=== PATIENT | female | born 1950 | race Caucasian/White ===

== ENCOUNTER → 2017-03-04 | Outpatient (CLI) | payer MEDICARE, OTHER ==
[~2017-03-04] MED LIST: ACETAMINOPHEN-1 EAC1 PO; ACETAMINOPHEN325 M1 PO; ACID CONTROL20 MG PO; CALCIUM 500 +1 EAC5 PO; COLACE100 MG PO; COUMADIN7.5 MG PO; DOXYCYCLINE 10100 MG PO; ESTRADIOL 1 MG T1 M1 PO; FERRO-TIME325 MG PO; FLEXERIL PO; FOLIC ACID1 MG PO; HUMIRA20 MG/0.4 SQ; L-LYSINE500 M1 PO; LEVAQUIN 500 M500 M2 PO; LIDODERM TP; MACROBID 100 M100 M1 PO; METHOTREXATE 22.5 MG PO; MOBIC15 MG PO; NEXIUM40 MG PO; PERCOCET 5-3251 EACH PO; PREDNISONE 10 M10 MG PO; PREDNISONE PO; PROAIR HFA8.5 GM INH; PROTONIX40 M1 PO
[2017-03-04 13:20] LABS: HEMATOCRIT 39.7 % (37.0-47.0); HEMOGLOBIN 12.9 gm/dL (12.0-15.0); MCHC 32.5 g/dL (28.0-37.0); MCV 98.4 fL (80.0-100.0); MPV 7.4 fl. (7.2-11.1); RBC 4.04 mil/uL (4.20-5.00); RDW-CV 15.6 % (10.5-14.5); WBC 8.2 thou/uL (4.0-11.0)
[2017-03-04 13:34] LABS: CREATININE 1.1 mg/dL (0.6-1.3)
== END ==
LOC: M.LAB 12:55
DX: M05.9 Rheumatoid arthritis with rheumatoid factor, unspecified (principal)

== ENCOUNTER 2017-04-10 13:16 | Emergency (ER) | payer MEDICARE, OTHER ==
[~2017-04-10] VITALS: Ht 160 cm; Wt 78.9 kg
--- NOTE | ~2017-04-10 | EKG ---
[place] [address] ELECTROCARDIOGRAM REPORT Name: EMMANUEL CONDE [id number] Admission: 04/10/17 Attend Phys: Discharge: Date of : 50 Report #: [id number] THIS REPORT FOR: //name// [facility] ED Test Date: 2017-04-10 Test Time: 13:54:08 Pat Name: EMMANUEL CONDE Department: Room: Gender: F Literacy Education Professor: Mery MONTOYA : 1950 Requested By: Maria Victoria Cobian Order Number: [id number] MD: Measurements Intervals [place] Rate: 70 P: 34 OH: 183 QRS: 5 QRSD: 84 T: 4 QT: 409 QTc: 442 Interpretive Statements Sinus rhythm Probable left atrial enlargement Low voltage, precordial leads Compared to ECG 07/06/2009 03:46:12 Low QRS voltage now present [email or web address] By: [id number] Epiphany EpiphanyMD /EPI
[~2017-04-10 13:16] MED LIST changes: -DOXYCYCLINE 10100 MG PO; -ESTRADIOL 1 MG T1 M1 PO; -L-LYSINE500 M1 PO; -NEXIUM40 MG PO; -PROTONIX40 M1 PO
[2017-04-10] MEDS ORDERED: NEXIUM40 MG PO (13:31)
[2017-04-10] MEDS ORDERED: L-LYSINE500 M1 PO (13:31)
[2017-04-10 14:14] LABS: ABSOLUTE BASOPHILS 0.1 thou/uL (0.0-0.2); ABSOLUTE EOSINOPHILS 0.1 thou/uL (0.0-0.7); ABSOLUTE MONOCYTES 0.6 thou/uL (0.0-1.2); ABSOLUTE NEUTROPHILS 4.3 thou/uL (1.6-8.1); EOSINOPHILS 1.7 %; HEMATOCRIT 38.8 % (37.0-47.0); LYMPHOCYTES 36.3 %; MCH 32.1 pg (26.0-34.0); MCHC 33.4 g/dL (28.0-37.0); MCV 96.2 fL (80.0-100.0); MONOCYTES 7.8 %; MPV 7.3 fl. (7.2-11.1); NUCLEATED RBCS 0 /100WBC; PLATELET COUNT* 316 thou/uL (150-400); POLYS 53.2 %; RBC 4.04 mil/uL (4.20-5.00); RDW-CV 15.3 % (10.5-14.5); WBC 8.1 thou/uL (4.0-11.0)
[2017-04-10 14:20] LABS: ANION GAP 8 mmol/L (7-16); BUN 25 mg/dL (7-18); CALCIUM 8.9 mg/dL (8.5-10.1); CHLORIDE 104 mmol/L (98-107); CO2 27 mmol/L (21-32); CREATININE 1.1 mg/dL (0.6-1.3); GLUCOSE 100 mg/dL (70-99); POTASSIUM 4.3 mmol/L (3.5-5.1); SODIUM 139 mmol/L (136-145)
[2017-04-10 14:28] LABS: ALBUMIN 3.2 g/dL (3.4-5.0); ALKALINE PHOSPHATASE 50 U/L (46-116); LIPASE 225 U/L (73-393); SGOT 26 U/L (15-37); SGPT 25 U/L (30-65); TOTAL BILIRUBIN 0.4 mg/dL (<0.1-1.0); TOTAL PROTEIN 7.4 g/dL (6.4-8.2); TROPONIN-I LEVEL <0.06 ng/mL (<0.06)
[2017-04-10 15:17] LABS: URINE BILIRUBIN NEGATIVE (Negative); URINE BLOOD NEGATIVE (Negative); URINE CLARITY CLEAR; URINE COLOR STRAW; URINE GLUCOSE-RANDOM NEGATIVE (Negative); URINE KETONES NEGATIVE (Negative); URINE LEUKOCYTES-REFLEX NEGATIVE (Negative); URINE NITRITE-REFLEX NEGATIVE (Negative); URINE PROTEIN NEGATIVE (Negative); URINE SPECIFIC GRAVITY <= 1.005 (1.005-1.030); URINE UROBILINOGEN 0.2 E.U./dl (0.2-1.0)
[2017-04-10 15:41] VITALS: BP 143/66
== END 2017-04-10 15:42 | disposition home or self-care (01) ==
LOC: M.ERS 13:16
PROVIDERS: Physician Assistant
DX: K59.00 Constipation, unspecified (principal); M06.9 Rheumatoid arthritis, unspecified; Z85.42 Personal history of malignant neoplasm of other parts of uterus; Z96.641 Presence of right artificial hip joint; Z90.710 Acquired absence of both cervix and uterus; Z88.5 Allergy status to narcotic agent; Z88.8 Allergy status to other drugs, medicaments and biological substances

== ENCOUNTER → 2017-04-13 | Outpatient (CLI) | payer MEDICARE, OTHER ==
[~2017-04-13] MED LIST changes: +DOXYCYCLINE 10100 MG PO; +ESTRADIOL 1 MG T1 M1 PO; +L-LYSINE500 M1 PO; +NEXIUM40 MG PO; +PROTONIX40 M1 PO
== END ==
LOC: M.RAD 12:36
DX: M16.12 Unilateral primary osteoarthritis, left hip (principal); M79.605 Pain in left leg

== ENCOUNTER → 2017-08-05 | Outpatient (CLI) | payer MEDICARE, OTHER ==
[2017-08-05 15:12] LABS: HEMATOCRIT 38.8 % (37.0-47.0); HEMOGLOBIN 12.8 gm/dL (12.0-15.0); MCH 31.8 pg (26.0-34.0); MCV 96.4 fL (80.0-100.0); MPV 6.6 fl. (7.2-11.1); RBC 4.03 mil/uL (4.20-5.00); RDW-CV 15.8 % (10.5-14.5); WBC 8.7 thou/uL (4.0-11.0)
[2017-08-05 15:22] LABS: CREATININE 1.5 mg/dL (0.6-1.3)
== END ==
LOC: M.LAB 14:52
DX: M05.9 Rheumatoid arthritis with rheumatoid factor, unspecified (principal)

== ENCOUNTER → 2017-08-28 | Outpatient (CLI) | payer MEDICARE, OTHER | LOC: M.RAD 12:13 | DX: R05 Cough (principal); R50.9 Fever, unspecified; M81.0 Age-related osteoporosis without current pathological fracture; M05.81 Other rheumatoid arthritis with rheumatoid factor of shoulder ==

== ENCOUNTER 2017-08-31 14:31 | Inpatient (IN) | payer MEDICARE, OTHER ==
[~2017-08-31] VITALS: Ht 160 cm; Wt 76.2 kg
[~2017-08-31 14:31] MED LIST changes: -DOXYCYCLINE 10100 MG PO; -ESTRADIOL 1 MG T1 M1 PO; -PROTONIX40 M1 PO
[2017-08-31 14:36] VITALS: BP 143/64
[2017-08-31] MEDS ORDERED: ESTRADIOL 1 MG T1 M1 PO (14:41)
[2017-08-31] MEDS ORDERED: FOLIC ACID1 MG PO (14:41)
[2017-08-31 15:14] LABS: HEMOGLOBIN 12.5 gm/dL (12.0-15.0); MCH 31.7 pg (26.0-34.0); MCHC 33.9 g/dL (28.0-37.0); MCV 93.4 fL (80.0-100.0); MPV 7.7 fl. (7.2-11.1); NUCLEATED RBCS 0 /100WBC; PLATELET COUNT* 204 thou/uL (150-400); RBC 3.96 mil/uL (4.20-5.00); RDW-CV 17.4 % (10.5-14.5); WBC 9.9 thou/uL (4.0-11.0)
[2017-08-31 15:26] LABS: CALCIUM 9.5 mg/dL (8.5-10.1); CREATININE 1.4 mg/dL (0.6-1.3); POTASSIUM 4.6 mmol/L (3.5-5.1)
[2017-08-31 15:31] LABS: TOTAL BILIRUBIN 0.6 mg/dL (<0.1-1.0); TOTAL PROTEIN 8.8 g/dL (6.4-8.2)
[2017-08-31 15:47] LABS: ABSOLUTE LYMPHOCYTES 3.5 thou/uL (0.8-5.3); ABSOLUTE MONOCYTES 1.5 thou/uL (0.0-1.2); ATYPICAL LYMPHS 3 %; PLATELET ESTIMATE ADEQUATE
[2017-08-31 15:58] LABS: URINE BILIRUBIN NEGATIVE (Negative); URINE BLOOD TRACE (Negative); URINE CLARITY CLEAR; URINE COLOR YELLOW; URINE GLUCOSE-RANDOM NEGATIVE (Negative); URINE KETONES 1+ (Negative); URINE LEUKOCYTES-REFLEX NEGATIVE (Negative); URINE NITRITE-REFLEX NEGATIVE (Negative); URINE PROTEIN TRACE (Negative); URINE SPECIFIC GRAVITY <= 1.005 (1.005-1.030); URINE UROBILINOGEN 0.2 E.U./dl (0.2-1.0)
[2017-08-31 16:53] VITALS: BP 130/63
[2017-08-31 17:10] VITALS: BP 134/74
[2017-08-31 18:50] VITALS: BP 141/81
[2017-09-01 00:02] VITALS: BP 108/51
[2017-09-01 04:30] LABS: HEMATOCRIT 34.6 % (37.0-47.0); HEMOGLOBIN 11.4 gm/dL (12.0-15.0); MCH 31.6 pg (26.0-34.0); MCHC 33.1 g/dL (28.0-37.0); MCV 95.6 fL (80.0-100.0); MPV 7.8 fl. (7.2-11.1); NUCLEATED RBCS 0 /100WBC; PLATELET COUNT* 172 thou/uL (150-400); RBC 3.62 mil/uL (4.20-5.00); RDW-CV 17.6 % (10.5-14.5); WBC 7.6 thou/uL (4.0-11.0)
[2017-09-01 04:37] LABS: CALCIUM 8.2 mg/dL (8.5-10.1); CREATININE 1.2 mg/dL (0.6-1.3); POTASSIUM 4.9 mmol/L (3.5-5.1)
--- NOTE | 2017-09-01 05:25 | NUR ---
ASSESSMENT COMPLETE. PT ALERT AND ORIENTED X4. PT GIVEN TYLENOL ONCE FOR HEADACHE. PT DENIES ANY N/V. PT ALSO REPORTS SHE BROKE FEVER. FEVER THIS AM 98.1. PT HAS IV FLUIDS INFUSING. PT IS ON ROOM AIR WITH [place] SATS. PT IS UP AD NONA. SEE ASSESSMENT AND VITALS FOR OTHER DETAILS. CALL LIGHT WITHIN REACH, WILL CONTINUE PLAN OF CARE
[2017-09-01 05:36] LABS: ABSOLUTE LYMPHOCYTES 3.5 thou/uL (0.8-5.3); ABSOLUTE MONOCYTES 0.2 thou/uL (0.0-1.2); ABSOLUTE NEUTROPHILS 3.9 thou/uL (1.6-8.1); ATYPICAL LYMPHS 2 %; PLATELET ESTIMATE ADEQUATE
[2017-09-01 05:37] LABS: TOXIC GRANULATION Occasional
[2017-09-01 05:38] LABS: ANISOCYTOSIS 1+; POIKILOCYTOSIS 1+
[2017-09-01 08:30] VITALS: BP 132/75
[2017-09-01 16:03] VITALS: BP 137/70
--- NOTE | 2017-09-01 16:31 | NUR ---
SW attempted to meet with pt to complete initial assessment but pt was busy with nurse at the time. SW to try again later and to follow to assist with safe dc planning.
--- NOTE | 2017-09-01 17:23 | NUR ---
PT CONT ON MED-SURG UNIT FOR CONT UNDIAGNOSED FEVERS. PT HAS BEEN AFEBRILE THIS SHIFT, ID CONSULT AND CT SCAN PERFORMED. PT IV LEFT AC INFILTRATED, NEW IV STARTED IN RIGHT FA, IT IS PATENT AND HAS NS INFUSING @ 80ML/HR, PT HAS NO C/O PAIN THIS SHIFT, PT UP AD NONA AND SELF SHOWER PERFORMED THIS AFTERNOON. HOURLY ROUNDING MAINTAINED. PT RESTING IN HER ROOM, CALL LIGHT IN REACH.
[2017-09-01 23:40] VITALS: BP 131/64
--- NOTE | 2017-09-02 06:17 | NUR ---
ASSESSMENT COMPLETE. PT SLEPT GOOD THROUGH THE NIGHT. PT REPORTED HEADACHE, TYLENOL GIVEN. PT AFEBRILE THROUGH THE NIGHT. PT IS ON ROOM AIR WITH [place] SATS. DENIES N/V. PT IS UP AD NONA WITH STEADY GAIT TO THE BATHROOM. PT HAS IV IN RIGHT FOREARM, SALINE LOCKED AND FLUSHES WITHOUT DIFFICULTY. SKIN INTACT. SEE ASSESSMENT AND VITALS FOR OTHER DETAILS. CALL LIGHT WITHIN REACH, WILL CONTINUE PLAN OF CARE
[2017-09-02 08:00] VITALS: BP 125/65
--- NOTE | 2017-09-02 11:53 | CON ---
[address] [address] CONSULTATION Name: EMMANUEL CONDE Room: [address] [place] Curt.Isabelle.#: [id number] Admission: 08/31/17 Attend Phys: Manan Murphy MD Discharge: Date of : 50 Report #: [id number] THIS REPORT FOR: //name// CC: Manan Martinez DATE OF SERVICE: 09/01/2017 INFECTIOUS DISEASE CONSULTATION ATTENDING PHYSICIAN: Manan Murphy M.D. REASON FOR EVALUATION: Febrile illness, uncertain etiology, in the setting of some degree of immunosuppression treatment for rheumatoid arthritis. HISTORY OF PRESENT ILLNESS: Chart reviewed, the patient examined. This is a 67-year-old woman with a long-standing history of rheumatoid arthritis, who is on combination therapy for treatment with prednisone and methotrexate, who has been ill for an excess of a week and has a history of urinary tract infections, which was felt to be likely cause of her fevers, although she is in minimal symptomology. She was treated with trimethoprim sulfamethoxazole without response and then ciprofloxacin days prior to admission. The fevers persisted in spite of this. She does have generalized arthralgias and as a result of her rheumatoid arthritis, she has not had any new-onset eruptions. No significant pulmonary or gastrointestinal-related complaints. On questioning about potential exposure, [place]. She has animal exposure including horses and does recall a tick bite roughly 4 days prior to development of her signs and symptoms. She has had no recent travel. No dietary indiscretion. She is not aware of any other exposure history. Evaluation noted unremarkable chest x-ray and her LFTs were in normal range. Lactic acid 1.0. CBC, white count of 9.9. She was not anemic. Urinalysis unremarkable. CRP and sed rate were markedly elevated. Blood cultures were sterile thus far. At this point, she feels somewhat better and she is actually defervesced. ALLERGIES: LISTED TO METRONIDAZOLE, CLARITHROMYCIN AND HYDROXYCHLOROQUINE. CURRENT MEDICATIONS: Include pantoprazole, methylprednisolone, enoxaparin and hydralazine. PAST MEDICAL HISTORY: As described above, the rheumatoid arthritis, history of uterine cancer, hysterectomy 23 years ago, right hip replacement and tonsillectomy. SOCIAL HISTORY: Nonsmoker. No ethanol. No illicit drug use. FAMILY HISTORY: [place] [address] CONSULTATION Name: EMMANUEL CONDE Room: [address]#: [id number] Admission: 08/31/17 Attend Phys: Manan Murphy MD Discharge: Date of : 50 Report #: [id number] REVIEW OF SYSTEMS: As above. PHYSICAL EXAMINATION: GENERAL: On examination, she is pleasant. She appears somewhat chronically ill. She is in mild distress, mildly undernourished. VITAL SIGNS: T-max of 102.9, more recently 98.1; pulse 83; respirations 16 and blood pressure 132/75. SKIN: Warm, dry. No rashes. HEENT: Otherwise, unremarkable. NECK: Supple. LUNGS: Few scattered crackles. HEART: Regular. I do not appreciate a murmur. ABDOMEN: Soft, nontender and nondistended. EXTREMITIES: No cyanosis. I do not see marked sequelae of the rheumatoid arthritis. GENITOURINARY: Deferred. RECTAL: Deferred. LABORATORY DATA: Chest x-ray, as described above. Sodium 128, potassium 4.6, chloride 94, bicarbonate is 25, BUN and creatinine 12 and 1.4 with anion gap of 9 and glucose of 99. LFTs normal. Albumin of 3.0. Total protein of 8.8. H and H 12.5 and 37.0 and platelets of 201,000, with some monocytosis. CRP of 266.4. Sed rate of 100. Blood cultures sterile thus far. ASSESSMENT AND PLAN: Fever of unclear etiology in the setting of rheumatoid arthritis. She has received corticosteroids and has defervesced. There is no focus and I could see a pyogenic infection. She did have a CT abdomen and pelvis back in April of this year that was otherwise unremarkable. Given her immune suppression, I think we can exclude occult processes. We will repeat the imaging, empirically treat with doxycycline with additional testing. <ELECTRONICALLY SIGNED> By: Joaquin Frank MD 09/02/17 [id number] Frank MD /nt
--- NOTE | 2017-09-02 13:18 | NUR ---
CM SPOKE TO THE PATIENT TO DISCUSS HOME SITUATION, DISCHARGE PLANNING, AND TO INFORM OF THE ROLE OF CM. PATIENT ALERT, ORIENTED, AND INDEPENDENT WITH ADL'S. PATIENT RESIDES AT HOME WITH SPOUSE. PATIENT USES 0 DME. PATIENT HAS NO HX OF HH OR SNF. ID IS CONSULTED AND AWAITING CULTURE RESULTS. CM WILL REMAIN AVAILABLE TO ASSIST AND FOLLOW NEEDED.
[2017-09-02 16:40] VITALS: BP 140/71
--- NOTE | 2017-09-02 18:52 | NUR ---
PATIENT RESTING IN BED. PATIENT IS UP AD NONA IN ROOM. PATIENT HAS BEEN AFEBRILE. PATIENT HAS GOOD APPETITE, NO NAUSEA. PATIENT DENIES ANY NEEDS AT THIS TIME. CALL LIGHT WITHIN REACH. WILL CONTINUE TO MONITOR.
[2017-09-03 00:01] VITALS: BP 107/61
--- NOTE | 2017-09-03 04:13 | NUR ---
ASSESSMENT COMPLETE. PT SLEPT THROUGH THE NIGHT WITHOUT ANY CONCERNS. PT DENIES AND PAIN AND N/V. PT AFEBRILE. PT HAS IV, SALINE LOCKED. PT IS UP AD NONA WITH STEADY GAIT. SEE ASSESSMENT AND VITALS FOR OTHER DETAILS. CALL LIGHT WITHIN REACH, WILL CONTINUE PLAN OF CARE
[2017-09-03 11:50] VITALS: BP 107/61
[2017-09-03] MEDS ORDERED: PROTONIX40 M1 PO (11:59)
--- NOTE | 2017-09-03 13:15 | NUR ---
explained to pt that we had to wait for dr slade before she could be discharged. pt verbalized understanding
[2017-09-03] MEDS ORDERED: DOXYCYCLINE 10100 MG PO (14:55)
[2017-09-03 14:56] VITALS: BP 107/61
--- NOTE | 2017-09-03 15:47 | NUR ---
REVIEWED DISCHARGE INSTRUCTIONS WITH PT, PT DENIES QUESTIONS. PRESCRIPTIONS, EDUCATION MATERIALS AND DISCHARGE INSTRUCTIONS GIVEN TO PT. PT WHEELED TO PRIVATE VEHICLE.
[2017-09-03 16:13] LABS: GLOBULIN TOTAL 4.6 g/dL (2.2-3.9); M-SPIKE Not Observed g/dL (Not Observed)
== END 2017-09-03 15:51 | disposition home or self-care (01) | DRG 865 ==
LOC: M.ERS 14:31 → M.TBA-ER 16:19 → M.3W 16:19
PROVIDERS: Nurse Practitioner Family; Specialist; ADMIT Internal Medicine
DX: A93.8 Other specified arthropod-borne viral fevers (principal); R65.11 Systemic inflammatory response syndrome (SIRS) of non-infectious origin with acute organ dysfunction; E87.1 Hypo-osmolality and hyponatremia; N17.9 Acute kidney failure, unspecified; N18.3 Chronic kidney disease, stage 3 (moderate); M06.9 Rheumatoid arthritis, unspecified; Z96.641 Presence of right artificial hip joint; Z98.42 Cataract extraction status, left eye; Z98.41 Cataract extraction status, right eye; Z88.6 Allergy status to analgesic agent; Z88.1 Allergy status to other antibiotic agents; Z88.8 Allergy status to other drugs, medicaments and biological substances; Z85.42 Personal history of malignant neoplasm of other parts of uterus; Z90.710 Acquired absence of both cervix and uterus

== ENCOUNTER → 2018-02-12 | Outpatient (CLI) | payer MEDICARE, OTHER ==
[~2018-02-12] MED LIST changes: +DOXYCYCLINE 10100 MG PO; +ESTRADIOL 1 MG T1 M1 PO; +PROTONIX40 M1 PO
== END ==
LOC: M.MRI 12:45
DX: M48.061 Spinal stenosis, lumbar region without neurogenic claudication (principal); M51.37 Other intervertebral disc degeneration, lumbosacral region; M41.87 Other forms of scoliosis, lumbosacral region

== ENCOUNTER → 2018-05-13 | Outpatient (CLI) | payer MEDICARE, OTHER ==
[2018-05-13 13:07] LABS: HEMATOCRIT 38.2 % (37.0-47.0); MCH 32.3 pg (26.0-34.0); MCHC 34.1 g/dL (28.0-37.0); MCV 94.7 fL (80.0-100.0); RBC 4.04 mil/uL (4.20-5.00); RDW-CV 15.1 % (10.5-14.5); WBC 10.7 thou/uL (4.0-11.0)
[2018-05-13 13:23] LABS: CREATININE 1.3 mg/dL (0.6-1.3)
== END ==
LOC: M.RAD 11:52
DX: M16.12 Unilateral primary osteoarthritis, left hip (principal); M06.9 Rheumatoid arthritis, unspecified; M05.9 Rheumatoid arthritis with rheumatoid factor, unspecified; Z96.641 Presence of right artificial hip joint; Z88.8 Allergy status to other drugs, medicaments and biological substances

== ENCOUNTER → 2018-07-07 | Outpatient (CLI) | payer MEDICARE, OTHER | LOC: M.RAD 14:11 | DX: Z12.31 Encounter for screening mammogram for malignant neoplasm of breast (principal) ==

== ENCOUNTER 2019-01-13 17:59 | Emergency (ER) | payer MEDICARE, OTHER ==
[~2019-01-13] VITALS: Ht 160 cm; Wt 72.6 kg
[2019-01-13] MEDS ORDERED: ZANTAC 150MG T150 M1 PO (18:11)
[2019-01-13 18:37] LABS: ABSOLUTE BASOPHILS 0.2 thou/uL (0.0-0.2); ABSOLUTE EOSINOPHILS 0.1 thou/uL (0.0-0.7); ABSOLUTE LYMPHOCYTES 2.9 thou/uL (0.8-5.3); ABSOLUTE MONOCYTES 0.8 thou/uL (0.0-1.2); BASOPHILS 0.8 %; EOSINOPHILS 0.6 %; HEMATOCRIT 34.2 % (37.0-47.0); HEMOGLOBIN 11.4 gm/dL (12.0-15.0); LYMPHOCYTES 15.2 %; MCH 32.8 pg (26.0-34.0); MCHC 33.4 g/dL (28.0-37.0); MCV 98.1 fL (80.0-100.0); MONOCYTES 4.2 %; MPV 6.9 fl. (7.2-11.1); NUCLEATED RBCS 0 /100WBC; PLATELET COUNT* 355 thou/uL (150-400); POLYS 79.2 %; RBC 3.48 mil/uL (4.20-5.00)
[2019-01-13 18:48] LABS: CALCIUM 9.7 mg/dL (8.5-10.1); CREATININE 1.4 mg/dL (0.6-1.3); POTASSIUM 3.5 mmol/L (3.5-5.1)
[2019-01-13 18:52] LABS: TOTAL BILIRUBIN 0.5 mg/dL (<0.1-1.0); TOTAL PROTEIN 8.1 g/dL (6.4-8.2)
[2019-01-13 20:33] VITALS: BP 128/46
== END 2019-01-13 20:33 | disposition short-term general hospital (02) ==
LOC: M.ERS 17:59
PROVIDERS: Nurse Practitioner Family
DX: T81.41XA Infection following a procedure, superficial incisional surgical site, initial encounter (principal); L03.116 Cellulitis of left lower limb; M06.9 Rheumatoid arthritis, unspecified; Z90.89 Acquired absence of other organs; Z96.643 Presence of artificial hip joint, bilateral; Z85.42 Personal history of malignant neoplasm of other parts of uterus; Z88.1 Allergy status to other antibiotic agents; Z88.5 Allergy status to narcotic agent; Y92.89 Other specified places as the place of occurrence of the external cause